=== PATIENT | male | born 1990 | race American Indian/Alaskan Native ===

== ENCOUNTER 2020-06-29 13:05 | Emergency (ER) | payer SELFPAY ==
[2020-06-29 13:29] VITALS: BP 138/79
--- NOTE | 2020-06-29 16:05 | Emergency Department Report ---
ED Lower Extremity HPI - General Chief Complaint: Extremity Problem,Nontraumatic Stated Complaint: FEET PAIN Time Seen by Provider: 06/29/20 15:11 Source: patient Mode of arrival: Ambulatory Limitations: No Limitations - History of Present Illness Initial Comments: This is a 30-year-old male nontoxic, well nourished in appearance, no acute signs of distress presents to the ED with c/o of intermittent bilateral posterior feet pain months. Patient denies any trauma. Patient denies any numbness, tingling, fever, chills, nausea, vomiting, chest pain, shortness of breath, headache, stiff neck. Patient denies any joint swelling or joint redness. Patient denies decreased range of motion or abnormal gait. Patient denies any allergies or significant past medical history. MD Complaint: foot injury -: month(s) Injury: Foot: Right, Left Severity: mild Severity scale (0 -10): 3 Improves With: immobilization Worsens With: palpation Associated Symptoms: ambulatory. denies: snap/pop sensation, swelling, numbness, tingling, unable to bear weight, able to partially bear weight - Related Data Previous Rx's Medication Instructions Recorded Last Taken Type Naproxen 500 mg PO Q12H PRN #12 tablet 06/29/20 Unknown Rx Allergies Allergy/AdvReac Type Severity Reaction Status Date / Time No Known Allergies Allergy Unverified 06/29/20 13:28 ED Review of Systems ROS: Stated complaint: FEET PAIN Other details as noted in HPI Constitutional: denies: chills, fever Eyes: denies: eye pain, eye discharge, vision change ENT: denies: ear pain, throat pain Respiratory: denies: cough, shortness of breath, wheezing Cardiovascular: denies: chest pain, palpitations Endocrine: no symptoms reported Gastrointestinal: denies: abdominal pain, nausea, diarrhea Genitourinary: denies: urgency, dysuria Musculoskeletal: denies: back pain, joint swelling, arthralgia Skin: denies: rash, lesions Neurological: denies: headache, weakness, paresthesias Psychiatric: denies: anxiety, depression Hematological/Lymphatic: denies: easy bleeding, easy bruising ED Past Medical Hx - Past Medical History Previous Medical History?: No - Surgical History Past Surgical History?: Yes Additional Surgical History: left wrist - Medications Home Medications: Home Medications Medication Instructions Recorded Confirmed Last Taken Type Naproxen 500 mg PO Q12H PRN #12 tablet 06/29/20 Unknown Rx ED Physical Exam - General Limitations: No Limitations General appearance: alert, in no apparent distress - Head Head exam: Present: atraumatic, normocephalic - Neck Neck exam: Present: normal inspection, full ROM - Respiratory Respiratory exam: Absent: respiratory distress - Cardiovascular Cardiovascular Exam: Present: regular rate - Extremities Exam Extremities exam: Present: full ROM, tenderness, normal capillary refill. Absent: joint swelling, calf tenderness - Expanded Lower Extremity Exam Right Hip exam: Present: normal inspection (bilateral exam), full ROM (bilateral exam). Absent: tenderness, swelling Upper Leg exam: Present: normal inspection (bilateral exam), full ROM (bilateral exam). Absent: tenderness, swelling Knee exam: Present: normal inspection (bilateral exam), full ROM (bilateral exam). Absent: tenderness, swelling Lower Leg exam: Present: normal inspection (bilateral exam), full ROM (bilateral exam). Absent: tenderness, swelling Ankle exam: Present: normal inspection (bilateral exam), full ROM (bilateral exam). Absent: tenderness, swelling, abrasion, laceration, ecchymosis, crepidus, dislocation, erythema, anterior draw sign Foot/Toe exam: Present: full ROM (bilateral exam), tenderness (bilateral exam). Absent: swelling, abrasion, laceration, ecchymosis, deformity, crepidus, dislocation, erythema, amputation, puncture wound, foreign body, calcaneal tenderness, tenderness at base of 5th metatarsal, nail avulsion, subungual hematoma Neuro vascular tendon exam: Present: no vascular compromise (bilateral exam) Gait: Positive: observed and normal 1 - pain here 2 - pain here - Back Exam Back exam: Present: full ROM - Neurological Exam Neurological exam: Present: alert, oriented X3, normal gait - Psychiatric Psychiatric exam: Present: normal affect, normal mood - Skin Skin exam: Present: warm, dry, intact, normal color. Absent: rash ED Course Vital Signs 06/29/20 13:28 Temperature 98.1 F Pulse Rate 69 Respiratory 16 Rate Blood Pressure 138/79 [Right] O2 Sat by Pulse 99 Oximetry - Reevaluation(s) Reevaluation #1: 06/29/20 16:04 Patient is speaking in full sentences with no signs of distress noted. ED Lower Extremity MDM - Medical Decision Making This is a 30-year-old male that presents with plantar fasciitis. Patient is stable and was examined by me. Patient is referred to see a orthopedic doctor. Patient does have normal gait with no tenderness and no joint swelling. No ecchymosis. no joint redness or swelling. Not warm to touch. No signs of cellulites present. Patient was instructed to RICE therapy. Patient is discharged with Motrin. At time of discharge, the patient does not seem toxic or ill in appearance. No acute signs of distress noted. Patient agrees to discharge treatment plan of care. No further questions noted by the patient. Critical care attestation.: If time is entered above; I have spent that time in minutes in the direct care of this critically ill patient, excluding procedure time. ED Disposition Clinical Impression: Bilateral plantar fasciitis Disposition: DC-01 TO HOME OR SELFCARE Is pt being admited?: No Does the pt Need Aspirin: No Condition: Stable Instructions: Plantar Fasciitis (ED) Additional Instructions: Follow-up with a orthopedic doctor in 3-5 days or if symptoms worsen and continue return to emergency room as soon as possible. Prescriptions: Naproxen 500 mg PO Q12H PRN #12 tablet PRN Reason: Pain , Severe (7-10) Referrals: PRIMARY MD VIANEY [Primary Care Provider] - 3-5 Days LUZ MARINA HOLLAND MD [Staff Physician] - 3-5 Days Forms: Work/School Release Form(ED)
== END 2020-06-29 16:10 | disposition home or self-care (01) ==
LOC: ED 13:05
DX: M72.2 Plantar fascial fibromatosis (principal)
CPT/HCPCS: 99282

== ENCOUNTER 2020-09-08 14:48 | Emergency (ER) | payer SELFPAY ==
[2020-09-08 16:21] VITALS: BP 170/114
--- NOTE | 2020-09-08 17:05 | XRay Report ---
LEFT ANKLE 3 VIEWS INDICATION / CLINICAL INFORMATION: MAIN. COMPARISON: None available. FINDINGS: No fracture or dislocation. No significant soft tissue swelling. Focal cortical thickening of the mid to distal fibula suggests an old healed fracture. If there is no history of previous fracture, then this could represent an osteoid osteoma. Signer Name: Stephane Ariza MD Signed: 09/08/2020 5:01 PM Workstation Name: [id number]
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
== END 2020-09-08 19:15 | disposition home or self-care (01) ==
LOC: ED 14:48
DX: S93.402A Sprain of unspecified ligament of left ankle, initial encounter (principal); X58.XXXA Exposure to other specified factors, initial encounter; Y93.89 Activity, other specified; Y92.89 Other specified places as the place of occurrence of the external cause; Y99.8 Other external cause status